=== PATIENT | male | born 1955 | race Caucasian/White ===

== ENCOUNTER 2016-09-16 13:50 | Emergency (ER) | payer OTHER ==
[~2016-09-16] VITALS: Ht 172.7 cm; Wt 136.0 kg
[~2016-09-16 13:50] MED LIST: ARIP1TAB5 PO; HYDR12.56 PO; LEXA5TAB PO
[2016-09-16 13:52] VITALS: BP 200/133; PULSE 98; RESP 24; TEMP 97.8; O2SAT 99
--- NOTE | 2016-09-16 13:59 | PD ---
Physical Exam Date Seen by Provider: Sep 16, 2016 Time Seen by Provider: 13:57 Narrative 61 yo male that presents to the ED for evaluation of sever left rib cage pain. Started after fall on monday. Coughed today and made the pain worst. Seen by PCP yesterday told everything looked ok. no SOB. Exertion and touch makes it worst. Did not passed out. No fevers, chills or sweats. Triped and fell around monday/monday. 1/10 pain if not moving. Moving makes it to a 6-10/10. Patient did not took his BP meds today. Vitals sign stable. Patient awaiting bed placement. Data Data Last Documented VS Vital Signs Date Time Temp Pulse Resp B/P Pulse Ox O2 Delivery O2 Flow Rate FiO2 09/16/16 13:52 97.8 98 24 200/133 99 Room Air [place] Medical Record Reviewed: Yes Supervised Visit with ALYSSA: No Kwabena Mcgraw Sep 16, 2016 13:59
[2016-09-16] MEDS ORDERED: FURO40TA PO (15:10)
--- NOTE | 2016-09-16 15:19 | PD ---
HPI Chief Complaint: Fall Time Seen by Provider: 15:19 Travel History International Travel<30 days: No Contact w/Intl Traveler<30days: No Traveled to known affect area: No History of Present Illness HPI 61-year-old male with a history of COPD, hypertension, diabetes, hyperlipidemia presents to the emergency department for evaluation of left-sided rib pain that began 5 days ago when he fell from his bed. Patient states that he was having a dream that he was being pulled forward which caused him to wake up suddenly and fall from his bed. States that when he fell he landed on his left side. Denies head trauma loss of consciousness. States that he's had discomfort in his left lower ribs since this occurred. States that today when getting out of the shower he coughed 3 times and felt severe sharp pain in his left lower ribs. The pain is aggravated with movement and breathing. Alleviated with holding still. Denies any shortness of breath, chest pain, lightheadedness, dizziness, nausea, vomiting, abdominal pain. He has not taken anything for his symptoms so far. No other complaints. PFSH Past Medical History Bipolar Disorder: Yes Depression: Yes Diabetes: Yes Hypertension: Yes Psychiatric: Yes (H/O SI with an overdose attempt) Social History Alcohol Use: No Tobacco Use: No Substance Use: No Allergies-Medications (Allergen,Severity, Reaction): Coded Allergies: No Known Allergies (Verified , 09/16/16) Reported Meds & Prescriptions Reported Meds & Active Scripts Active Reported Furosemide 40 Mg Tab 40 Mg PO DAILY Review of Systems Except as stated in HPI: all other systems reviewed are Neg Physical Exam Narrative GENERAL: Well-nourished and well-developed pleasant patient in no acute distress who is nontoxic appearing. SKIN: Warm and dry. HEAD: Normocephalic and atraumatic. EYES: No injection, drainage, or hyphema noted. PERRLA. EOMI. ENT: No nasal drainage noted. Oropharynx is clear. NECK: Supple and the trachea is midline. CARDIOVASCULAR: Regular rate and rhythm. RESPIRATORY: Breath sounds are equal bilaterally with no accessory muscle use, wheezing, rhonchi, or crackles. CHEST: Left lower anterior and lateral rib tenderness to palpation. No obvious deformities or step-offs noted. GASTROINTESTINAL: Abdomen is soft, non-tender, and nondistended. MUSCULOSKELETAL: No obvious deformities, swelling, cyanosis, or ecchymosis is present throughout the upper and lower extremities. Patient has full range of motion without any signs of neurovascular compromise. NEUROLOGICAL: Awake, alert, and oriented. Normal speech and gait. Cranial nerves are grossly intact. Data Data Last Documented VS Vital Signs Date Time Temp Pulse Resp B/P Pulse Ox O2 Delivery O2 Flow Rate FiO2 09/16/16 15:26 100 22 176/95 96 Room Air 09/16/16 13:52 97.8 Orders Chest, Pa & Lat (09/16/16 15:05) Oxycodone-Acetamin 5-325 Mg (Percocet (09/16/16 16:00) Resp Incentive Spirometry (09/16/16 ) MDM Medical Decision Making Medical Screen Exam Complete: Yes Emergency Medical Condition: Yes Differential Diagnosis Rib pain versus fracture versus contusion versus muscle strain Narrative Course 61-year-old male presents to the emergency department for evaluation of left rib pain. Patient is afebrile. He is initially hypertensive with a blood pressure 200/133, blood pressure is now 176/95. He is in pain and he admits to not taking his blood pressure medication this morning. He has left lower rib pain after falling 5 days ago and then subsequently coughing very hard today. He has breath sounds in all lung [place]. Chest x-ray is negative for any acute abnormalities. I suspect that he either has a muscle strain or a small rib fracture not noted on x-ray. I discussed this with the patient and family. He' ll be given pain medication and incentive spirometry. Patient verbalizes understanding and agreement with treatment plan. Diagnosis Primary Impression: Rib pain on left side Referrals: Primary Care Physician Patient Instructions: General Instructions Additional Instructions: Use incentive spirometer as directed. Apply ice or heat to help alleviate symptoms. Take medication as prescribed with food and a full glass of water. Do not take Lortab with alcohol or while driving. Follow-up with your Primary Care Physician. Return to the ED for any acute worsening of symptoms. Med/Other Pt SpecificInfo: Prescription(s) given Disposition: 01 DISCHARGE HOME Condition: Stable Parvin Mccauley Sep 16, 2016 15:19
[2016-09-16 15:26] VITALS: BP 176/95; PULSE 100; RESP 22; O2SAT 96
--- NOTE | 2016-09-16 15:56 | RADRPT ---
EXAM DATE/TIME: 09/16/2016 15:32 [facility] COMPARISON: No previous studies available for comparison. INDICATIONS : Patient complains of left flank pain and shortness of breath. MEDICAL HISTORY : Chronic obstructive pulmonary disease. SURGICAL HISTORY : None. ENCOUNTER: Initial ACUITY: 1 day PAIN SCORE: 10/10 LOCATION: Chest FINDINGS: There are minimal bibasilar parenchymal changes. The lungs are underaerated. Heart and pulmonary va scularity are normal. There is no pneumothorax. I see no obvious fracture. CONCLUSION: Underaerated with minimal bibasilar parenchymal changed. Iván Toth MD FACR on September 16, 2016 at 15:51 Board Certified Radiologist. This report was verified electronically.
[2016-09-16] MEDS ORDERED: oxyCODONE/ACETAMINOPHEN 5 MG/325 MG TAB PO ONE (16:00)
[2016-09-16] MEDS ORDERED: HYDR-3533 PO (16:11)
[2016-09-16] MEDS ORDERED: ALPR.5 PO ×2 (16:31)
[2016-09-16] MEDS ORDERED: FLUT1SPR5 EACH NARE (16:31)
[2016-09-16] MEDS ORDERED: ATOR40TA16 PO (16:31)
[2016-09-16] MEDS ORDERED: LOSA50TA PO (16:31)
[2016-09-16] MEDS ORDERED: VENTAER INH (16:31)
[2016-09-16] MEDS ORDERED: KETO2CRE TOPICAL (16:31)
[2016-09-16] MEDS ORDERED: FLUT1INH INH (16:31)
[2016-09-16] MEDS ORDERED: LIDO5%T TOPICAL (16:31)
[2016-09-16] MEDS ORDERED: LAMI1CRE TOPICAL (16:31)
[2016-09-16] MEDS ORDERED: IPRASOL NEB (16:31)
[2016-09-16 17:00] VITALS: BP 158/90
== END 2016-09-16 17:54 | disposition home or self-care (01) ==
LOC: NEPD 13:50
DX: R07.81 Pleurodynia (principal); I10 Essential (primary) hypertension; E11.9 Type 2 diabetes mellitus without complications; W06.XXXA Fall from bed, initial encounter; J44.9 Chronic obstructive pulmonary disease, unspecified; E78.5 Hyperlipidemia, unspecified; Y93.84 Activity, sleeping; Y92.9 Unspecified place or not applicable; Y99.9 Unspecified external cause status
CPT/HCPCS: 71020; 99283